=== PATIENT | male | born 1990 | race American Indian/Alaskan Native ===

== ENCOUNTER 2019-04-08 09:21 | Emergency (ER) | payer OTHER ==
[~2019-04-08] VITALS: Ht 175.3 cm; Wt 90.9 kg
[2019-04-08 10:23] VITALS: BP 140/81
== END 2019-04-08 10:25 | disposition home or self-care (01) ==
LOC: ER 09:23
DX: S93.492A Sprain of other ligament of left ankle, initial encounter (principal); X50.1XXA Overexertion from prolonged static or awkward postures, initial encounter; Y93.01 Activity, walking, marching and hiking; Y92.89 Other specified places as the place of occurrence of the external cause; Y99.8 Other external cause status
CPT/HCPCS: 73610; 99283

== ENCOUNTER 2019-09-07 08:10 | Emergency (ER) | payer OTHER ==
[~2019-09-07] VITALS: Ht 177.8 cm; Wt 96.3 kg
[2019-09-07 08:24] VITALS: BP 123/58
== END 2019-09-07 09:00 | disposition home or self-care (01) ==
LOC: ER 08:10
DX: S93.492D Sprain of other ligament of left ankle, subsequent encounter (principal); G89.29 Other chronic pain; X50.1XXD Overexertion from prolonged static or awkward postures, subsequent encounter
CPT/HCPCS: 99281

== ENCOUNTER 2019-10-20 09:06 | Emergency (ER) | payer OTHER ==
[~2019-10-20] VITALS: Ht 177.8 cm; Wt 94.5 kg
[2019-10-20 09:32] VITALS: BP 120/72
[2019-10-20] MEDS ORDERED: PRED20TA PO (10:01)
[2019-10-20] MEDS ORDERED: CETI10TA18 PO (10:01)
[2019-10-20] MEDS ORDERED: DIPH25CA83 PO (10:01)
== END 2019-10-20 10:30 | disposition home or self-care (01) ==
LOC: ER 09:06
DX: L23.7 Allergic contact dermatitis due to plants, except food (principal); F17.210 Nicotine dependence, cigarettes, uncomplicated; Z79.899 Other long term (current) drug therapy
CPT/HCPCS: 99283

== ENCOUNTER 2020-03-10 17:48 | Emergency (ER) | payer OTHER ==
[~2020-03-10] VITALS: Ht 177.8 cm; Wt 78.0 kg
[~2020-03-10 17:48] MED LIST: CETI10TA18 PO; DIPH25CA83 PO
[2020-03-10 18:29] LABS: BASOPHILS % (AUTO) 0.9 % (0-1); EOSINOPHILS % (AUTO) 0.9 % (0-6); HEMATOCRIT 42.9 % (42.0-52.0); HEMOGLOBIN 15.1 g/dl (14.0-17.9); LYMPHOCYTES # (AUTO) 1.9 X10'3 (1.1-4.8); MEAN CORPUSCULAR HEMOGLOBIN 30.7 PG (27.0-31.0); MEAN CORPUSCULAR HGB CONC 35.1 g/dL (33.0-36.5); MEAN CORPUSCULAR VOLUME 87.4 FL (78-98); MEAN PLATELET VOLUME 8.5 FL (7.4-10.4); MONOCYTES # (AUTO) 0.5 X10'3 (0-0.9); MONOCYTES % (AUTO) 8.7 % (2-12); NEUTROPHILS # (AUTO) 2.9 X10'3 (1.8-7.7); NEUTROPHILS % (AUTO) 54.5 % (42-75); PLATELET COUNT 238 X10'3 (140-440); RED BLOOD COUNT 4.91 X10'6 (4.70-6.10); RED CELL DISTRIBUTION WIDTH 13.2 % (11.5-14.5); WHITE BLOOD COUNT 5.4 X10'3 (4.5-11.0)
[2020-03-10 18:44] LABS: ALANINE AMINOTRANSFERASE 36 U/L (12-78); ALBUMIN 4.2 G/DL (3.4-5.0); ALBUMIN/GLOBULIN RATIO 1.4 (1.1-1.5); ALKALINE PHOSPHATASE 56 IU/L (46-116); ANION GAP 6 (8-16); ASPARTATE AMINO TRANSFERASE 17 U/L (10-37); BILIRUBIN,TOTAL 0.5 MG/DL (0.1-1.0); BLOOD UREA NITROGEN 15 MG/DL (7-18); BUN/CREATININE RATIO 12.9 (5.4-32.0); CALCIUM 9.2 MG/DL (8.5-10.1); CHLORIDE 104 MMOL/L (99-107); CREATININE 1.16 MG/DL (0.60-1.10); GLUCOSE 99 MG/DL (70-104); LIPASE 164 U/L (73-393); POTASSIUM 3.5 MMOL/L (3.5-5.1); SODIUM 141 MMOL/L (135-145); TOTAL CARBON DIOXIDE 31.3 MMOL/L (24-32); TOTAL PROTEIN 7.3 G/DL (6.4-8.2); eGFR 76 ML/MIN
--- NOTE | 2020-03-10 18:44 | NUR ---
OHLFS AT BEDSIDE TO EVALUATE PT AND DO FAST ULTRASOUND OF GALLBLADDER
[2020-03-10] MEDS ORDERED: ibuprofen tablet 400 MG TABLET PO ONE (18:50)
[2020-03-10 19:17] LABS: CLARITY,URINE SLIGHTLY CLOUDY (Clear); COLOR,URINE YELLOW (Yellow); GLUCOSE, URINE NEGATIVE (Neg); KETONES,URINE NEGATIVE (Neg); LEUKOCYTE ESTERASE ,URINE NEGATIVE (Neg); NITRITES, URINE NEGATIVE (Neg); OCCULT BLOOD,URINE NEGATIVE (Neg); PH,URINE 6.5 (4.8-8.0); PROTEIN,URINE NEGATIVE (Neg); UROBILINOGEN,URINE 0.2 E.U/dL (0.2-1.0)
[2020-03-10 19:28] LABS: BACTERIA,URINE NONE SEEN /HPF (Neg); RBC,URINE NONE SEEN /HPF (0-2); UA COLLECTION TYPE CLN CATCH MIDSTREAM; WBC,URINE 0-4 /HPF (0-4)
[2020-03-10 19:29] LABS: AMORPHOUS URATES 2+; SQUAMOUS EPITHELIAL CELL,UR FEW /LPF (FEW)
[2020-03-10 19:30] LABS: MUCUS STRANDS FEW /LPF (Neg)
[2020-03-10 19:59] VITALS: BP 133/78
== END 2020-03-10 19:53 | disposition home or self-care (01) ==
LOC: ER 17:49
DX: R10.10 Upper abdominal pain, unspecified (principal); R09.1 Pleurisy; Z79.899 Other long term (current) drug therapy
CPT/HCPCS: 36415; 80053; 81001; 83690; 85025; 99284

== ENCOUNTER 2021-07-04 23:16 | Emergency (ER) | payer BC, OTHER ==
[~2021-07-04] VITALS: Ht 175.3 cm; Wt 95.5 kg
[~2021-07-04 23:16] MED LIST changes: -CETI10TA18 PO; +CETI10TA19 PO
[2021-07-05 00:49] LABS: CLARITY,URINE SLIGHTLY CLOUDY (Clear); COLOR,URINE YELLOW (Yellow); PH,URINE 7.5 (4.8-8.0); UA COLLECTION TYPE NON-SPECIFIED
[2021-07-05 00:49] LABS: ALANINE AMINOTRANSFERASE 82 U/L (12-78); ALBUMIN 3.8 G/DL (3.4-5.0); ALBUMIN/GLOBULIN RATIO 1.2 (1.1-1.5); ALKALINE PHOSPHATASE 47 IU/L (46-116); ANION GAP 9 (8-16); ASPARTATE AMINO TRANSFERASE 70 U/L (10-37); BILIRUBIN,TOTAL 0.4 MG/DL (0.1-1.0); BLOOD UREA NITROGEN 10 MG/DL (7-18); BUN/CREATININE RATIO 7.6 (5.4-32.0); CALCIUM 7.9 MG/DL (8.5-10.1); CHLORIDE 107 MMOL/L (99-107); CREATININE 1.31 MG/DL (0.60-1.10); GLUCOSE 86 MG/DL (70-104); LIPASE 134 U/L (73-393); POTASSIUM 3.6 MMOL/L (3.5-5.1); SODIUM 144 MMOL/L (135-145); TOTAL CARBON DIOXIDE 28.1 MMOL/L (24-32); eGFR 65 ML/MIN
[2021-07-05 00:50] LABS: GLUCOSE, URINE NEGATIVE (Neg); KETONES,URINE TRACE mg/dl (Neg); LEUKOCYTE ESTERASE ,URINE NEGATIVE (Neg); NITRITES, URINE NEGATIVE (Neg); OCCULT BLOOD,URINE NEGATIVE (Neg); PROTEIN,URINE TRACE mg/dl (Neg); UROBILINOGEN,URINE 0.2 E.U/dL (0.2-1.0)
[2021-07-05 00:52] LABS: AMORPHOUS PHOSPHATES 2+; BACTERIA,URINE FEW /HPF (Neg); MUCUS STRANDS FEW /LPF (Neg); RBC,URINE 0-2 /HPF (0-2); SQUAMOUS EPITHELIAL CELL,UR FEW /LPF (FEW); WBC,URINE 0-4 /HPF (0-4)
--- NOTE | 2021-07-05 01:05 | NUR ---
ULTRASOUND PAGED AT [id number]
[2021-07-05 01:13] LABS: BASOPHILS # (AUTO) 0.1 X10'3 (0-0.2); BASOPHILS % (AUTO) 1.1 % (0-1); EOSINOPHILS # (AUTO) 0.1 X10'3 (0-0.9); EOSINOPHILS % (AUTO) 0.8 % (0-6); HEMATOCRIT 45.4 % (42.0-52.0); HEMOGLOBIN 15.6 g/dl (14.0-17.9); LYMPHOCYTES % (AUTO) 42.6 % (21-51); MEAN CORPUSCULAR HEMOGLOBIN 30.3 PG (27.0-31.0); MEAN CORPUSCULAR HGB CONC 34.3 g/dL (33.0-36.5); MEAN CORPUSCULAR VOLUME 88.4 FL (78-98); MEAN PLATELET VOLUME 8.1 FL (7.4-10.4); MONOCYTES # (AUTO) 0.4 X10'3 (0-0.9); NEUTROPHILS # (AUTO) 3.5 X10'3 (1.8-7.7); NEUTROPHILS % (AUTO) 49.5 % (42-75); PLATELET COUNT 302 X10'3 (140-440); RED BLOOD COUNT 5.14 X10'6 (4.70-6.10); RED CELL DISTRIBUTION WIDTH 13.1 % (11.5-14.5)
[2021-07-05] MEDS ORDERED: FAMO40TA73 PO (01:30)
[2021-07-05 01:52] VITALS: BP 120/60
== END 2021-07-05 01:53 | disposition home or self-care (01) ==
LOC: ER 23:17
DX: R10.13 Epigastric pain (principal); R74.01 Elevation of levels of liver transaminase levels; R11.0 Nausea; Z79.899 Other long term (current) drug therapy
CPT/HCPCS: 36415; 80053; 81001; 83690; 85025; 99284